=== PATIENT | female | born 1935 | race Caucasian/White ===

== ENCOUNTER 2016-05-02 23:23 | Inpatient (IN) | payer OTHER ==
[2016-05-03 00:11] LABS: BASOPHILS # (AUTO) 0.1 X10^3/uL (0.0-0.1); BASOPHILS % (AUTO) 0.5 % (0.2-1.0); EOSINOPHILS # (AUTO) 0.2 x10^3/uL (0.0-0.2); EOSINOPHILS % (AUTO) 1.8 % (0.9-2.9); HEMATOCRIT 39.2 % (36.0-47.0); HEMOGLOBIN 13.1 g/dL (12.0-16.0); LYMPHOCYTES # (AUTO) 3.1 X10^3/uL (1.3-2.9); LYMPHOCYTES % (AUTO) 25.2 % (21.0-51.0); MEAN CORPUSCULAR HEMOGLOBIN 29.3 pg (27.0-34.0); MEAN CORPUSCULAR HGB CONC 33.3 g/dL (33.0-35.0); MEAN CORPUSCULAR VOLUME 87.8 fL (80.0-100.0); MONOCYTES % (AUTO) 7.9 % (0.0-13.0); NEUTROPHILS % (AUTO) 64.6 % (42.0-75.0); PLATELET COUNT 169 X10^3/uL (150.0-450.0); RED BLOOD COUNT 4.47 X10^6/uL (3.5-5.4); RED CELL DISTRIBUTION WIDTH 14.4 % (11.6-16.5); WHITE BLOOD COUNT 12.3 X10^3/uL (3.6-10.0)
[2016-05-03 00:21] LABS: BLOOD UREA NITROGEN 17 mg/dL (7-18); CALCIUM 8.9 mg/dL (8.5-10.1); CHLORIDE 106 mmol/L (98-107); COR NA(FOR HYPERGLY) 143 mmol/L (136-145); CREATININE 1.17 mg/dL (0.55-1.02); GLUCOSE 131 mg/dL (65-99); SODIUM 142 mmol/L (136-145); TROPONIN I < 0.02 ng/mL (0-1.5); eGFR BLACK RACES 58 (>60); eGFR NON BLACK RACES 48 (>60)
[2016-05-03 00:25] LABS: ALANINE AMINOTRANSFERASE 53 Units/L (12-78); ALBUMIN 3.4 g/dL (3.4-5.0); ALKALINE PHOSPHATASE 73 Units/L (46-116); ASPARTATE AMINO TRANSFERASE 43 Units/L (15-37); CKMB % 1.8 % (<4); CREATINE KINASE 56 Units/L (26-192); CREATINE KINASE MB < 1.0 ng/mL (0-4.0); MAGNESIUM 1.6 mg/dL (1.7-2.9); TOTAL PROTEIN 7.2 g/dL (6.4-8.2)
[2016-05-03 00:26] LABS: D DIMER < 100 ng/mL (0-400)
--- NOTE | 2016-05-03 00:43 | DR.GENAD ---
HPI - PCP Primary Care Physician: cathryn - Complaint/Symptoms Chief Complaint Doctors Comments: Patient presents with complaint of chest heaviness onset at 1500 today and has not gone away. Decided to have it evaluated. "I have A Fib but it not that" just a heaviness. Chief Complaint:: heaviness/tightness in chest - Source History Provided: Patient - Mode of Arrival Mode of Arrival: Ambulatory - Timing Onset of Chief Complaint: 05/02/16 PMH - PMH Past Medical History: Yes Past Medical History: Arthritis, Dyslipidemia Past Medical History Comment: history of a-fib Past Surgical History: Yes Surgical History: Ortho Surgery - Family History History of Family Medical Conditions: Yes Family Medical History: Diabetes Mellitus, Cancer - Social History Does patient currently use any type of tobacco product: No Have you used tobacco products in the last 12 months: No Type of Tobacco Use: None Does any household member use tobacco: No Alcohol Use: None Do you use any recreational Drugs:: No Lives With: Spouse Lives Where: Home - infectious screening In the last 2 months have you had wt loss of >10#?: NO Have you had fever, night sweats or hemotysis?: No Have you traveled outside the country in the last 6 months?: No Isolation: Standard ROS - Review of Systems Constitutional: No Symptoms Reported Eyes: No Symptoms Reported ENTM: No Symptoms Reported Respiratoy: No Symptoms Reported Cardiovascular: No Symptoms Reported Gastrointestinal/Abdominal: No Symptoms Reported Genitourinary: No Symptoms Reported Neurological: No Symptoms Reported Musculoskeletal: No Symptoms Reported Integumentary: No Symptoms Reported Hematologic/Lymphatic: No Symptoms Reported, See HPI Endocrine: No Symptoms Reported Psychiatric: No Symptoms Reported All Other Systems: Reviewed and Negative PE - Vital Signs Vitals: Temperature 98.4 F Pulse Rate 71 Respiratory Rate 16 Blood Pressure [Right Arm] 142/66 Blood Pressure [Left Arm] 117/82 Blood Pressure 151/77 O2 Sat by Pulse Oximetry 95 - General Limitations: No Limitations General Appearance: Alert, In No Apparent Distress - Head Head Exam: Normal Inspection, Atraumatic - Eyes Eye exam: Normal Appearance, PERRL, EOMI - ENT ENT Exam: Normal Exam External Ear Exam: Normal External Inspection TM/Canal Exam: Bilateral Normal Nose Exam: Normal Nose Exam Mouth Exam: Normal Inspection Throat Exam: Normal Inspection - Neck Neck Exam: Normal Inspection - Chest Chest Inspection: Normal Inspection - Cardiovascular Cardiovascular Exam: Regular Rate - Abdominal Exam Abdominal Exam: Normal Inspection, Normal Bowel Sounds Abdominal Tenderness: negative: RUQ, RLQ, LUQ, LLQ, Epigastrium, Suprapubic, Diffuse, Mild, Moderate, Severe, Other - Extremities Extremities Exam: Normal Inspection - Back Back Exam: Normal Inspection, Full ROM - Neurologic Neurological Exam: Alert, Oriented X3, CN II-XII Intact - Psychiatric Psychiatric Exam: Normal Affect - Skin Skin Exam: Warm, Dry, Intact ROR - Labs Reviewed Result Diagrams: 05/02/16 23:55 05/02/16 23:55 Laboratory: WBC 12.3 X10^3/uL (3.6-10.0) H 05/02/16 23:55 RBC 4.47 X10^6/uL (3.5-5.4) 05/02/16 23:55 Hgb 13.1 g/dL (12.0-16.0) 05/02/16 23:55 Hct 39.2 % (36.0-47.0) 05/02/16 23:55 MCV 87.8 fL (80.0-100.0) 05/02/16 23:55 MCH 29.3 pg (27.0-34.0) 05/02/16 23:55 MCHC 33.3 g/dL (33.0-35.0) 05/02/16 23:55 RDW 14.4 % (11.6-16.5) 05/02/16 23:55 Plt Count 169 X10^3/uL (150.0-450.0) 05/02/16 23:55 MPV 9.0 fL (7.4-11.0) 05/02/16 23:55 Neut % 64.6 % (42.0-75.0) 05/02/16 23:55 Lymph % 25.2 % (21.0-51.0) 05/02/16 23:55 [place] % 7.9 % (0.0-13.0) 05/02/16 23:55 Eos % 1.8 % (0.9-2.9) 05/02/16 23:55 Baso % 0.5 % (0.2-1.0) 05/02/16 23:55 Neut # 8.0 x10^3/uL (2.2-4.8) H 05/02/16 23:55 Lymph # 3.1 X10^3/uL (1.3-2.9) H 05/02/16 23:55 [place] # 1.0 x10^3/uL (0.3-0.8) H 05/02/16 23:55 Eos # 0.2 x10^3/uL (0.0-0.2) 05/02/16 23:55 Baso # 0.1 X10^3/uL (0.0-0.1) 05/02/16 23:55 Absolute Nucleated RBC 0.0 /100WBC 05/02/16 23:55 INR Target Range - 05/02/16 23:55 INR 1.32 (0.8-1.3) H 05/02/16 23:55 PTT 38.5 SECONDS (22.9-36.5) H 05/02/16 23:55 PTT Comment - 05/02/16 23:55 D-Dimer < 100 ng/mL (0-400) 05/02/16 23:55 Sodium 142 mmol/L (136-145) 05/02/16 23:55 Corrected Sodium 143 mmol/L (136-145) 05/02/16 23:55 Potassium 3.4 mmol/L (3.5-5.1) L 05/02/16 23:55 Chloride 106 mmol/L (98-107) 05/02/16 23:55 Carbon Dioxide 27.0 mmol/L (21-32) 05/02/16 23:55 BUN 17 mg/dL (7-18) 05/02/16 23:55 Creatinine 1.17 mg/dL (0.55-1.02) H 05/02/16 23:55 Est GFR (MDRD) Af Amer 58 (>60) L 05/02/16 23:55 Est GFR (MDRD) Non-Af 48 (>60) L 05/02/16 23:55 Glucose 131 mg/dL (65-99) H 05/02/16 23:55 Calcium 8.9 mg/dL (8.5-10.1) 05/02/16 23:55 Corrected Calcium TNP 05/02/16 23:55 Magnesium 1.6 mg/dL (1.7-2.9) L 05/02/16 23:55 Total Bilirubin 0.40 mg/dL (0.2-1.0) 05/02/16 23:55 AST 43 Units/L (15-37) H 05/02/16 23:55 ALT 53 Units/L (12-78) 05/02/16 23:55 Alkaline Phosphatase 73 Units/L (46-116) 05/02/16 23:55 Creatine Kinase 56 Units/L (26-192) 05/02/16 23:55 CK-MB (CK-2) < 1.0 ng/mL (0-4.0) 05/02/16 23:55 CK/CKMB % Calc 1.8 % (<4) 05/02/16 23:55 Troponin I < 0.02 ng/mL (0-1.5) 05/02/16 23:55 Total Protein 7.2 g/dL (6.4-8.2) 05/02/16 23:55 Albumin 3.4 g/dL (3.4-5.0) 05/02/16 23:55 Globulin 3.8 g/dL (2.5-4.5) 05/02/16 23:55 Albumin/Globulin Ratio 0.9 Ratio (1.1-2.1) L 05/02/16 23:55 - Diagnosis Discharge Problem: Chest pressure - Discharge Plan Condition: Stable - Follow ups/Referrals Follow ups/Referrals: Bhanu Coughlin [Primary Care Provider] - 3 days - Instructions
[2016-05-03] MEDS ORDERED: ZOFRAN INJ 4 MG VIAL IVP PRN ×2 (01:05→02:15)
--- NOTE | 2016-05-03 01:17 | RAD ---
AP Chest Indication: Chest pain and tightness Comparison: 05/10/2015 Findings: The trachea is midline. The cardiac silhouette is enlarged, unchanged. There is no change in elevat ion of the left hemidiaphragm with a gas-filled loop of splenic flexure beneath the left hemidiaphr agm . There is atelectasis/scarring within the left lung base. No dense airspace consolidation or pl eural effusion identified . No pneumothorax.Chronic displaced fracture deformity of the mid right cl avicle. IMPRESSION: 1. No acute cardiopulmonary abnormality or change from prior examination.. Reported By:
[2016-05-03] MEDS ORDERED: CARDIZEM INJ 125 MG VIAL 125 MG in NS 100 ML IV 100 ML IV PRN (02:04)
[2016-05-03] MEDS ORDERED: CARDIZEM INJ 125 MG VIAL ONE (02:14)
[2016-05-03] MEDS ORDERED: NS 100 ML IV 100 ML IV ONE (02:14)
[2016-05-03] MEDS: CARDIZEM INJ 125 MG VIAL 125 MG in NS 100 ML IV 100 ML IV PRN ×2 (02:26→09:18)
[2016-05-03] MEDS ORDERED: CARDIZEM INJ 50 MG VIAL IVP ONE (02:40)
[2016-05-03 02:46] VITALS: BMI 28.1
[2016-05-03 02:48] LABS: BILIRUBIN,URINE NEGATIVE (NEGATIVE); BLOOD/HEMOGLOBIN,URINE 1+ (NEGATIVE); GLUCOSE, URINE NEGATIVE (NEGATIVE); KETONES,URINE NEGATIVE (NEGATIVE); LEUKOCYTE ESTERASE ,URINE NEGATIVE (NEGATIVE); NITRITES,URINE NEGATIVE (NEGATIVE); PROTEIN,URINE NEGATIVE (NEGATIVE); UROBILINOGEN,URINE NORMAL (NORMAL)
[2016-05-03 02:53] LABS: APPEARANCE,URINE CLEAR (CLEAR); BACTERIA,URINE NEGATIVE /HPF (NEGATIVE); COLOR,URINE YELLOW (YELLOW); RBC,URINE 0-2 /HPF (NEGATIVE); SQUAMOUS EPITHELIAL CELL,UR RARE /HPF (NEGATIVE)
[2016-05-03] MEDS: TYLENOL 325 MG TAB PO PRN ×2 (04:20→10:37)
[2016-05-03 06:32] LABS: BASOPHILS % (AUTO) 0.4 % (0.2-1.0); EOSINOPHILS # (AUTO) 0.1 x10^3/uL (0.0-0.2); EOSINOPHILS % (AUTO) 0.9 % (0.9-2.9); HEMATOCRIT 40.1 % (36.0-47.0); HEMOGLOBIN 13.5 g/dL (12.0-16.0); LYMPHOCYTES % (AUTO) 23.1 % (21.0-51.0); MEAN CORPUSCULAR HEMOGLOBIN 29.4 pg (27.0-34.0); MEAN CORPUSCULAR HGB CONC 33.8 g/dL (33.0-35.0); MEAN CORPUSCULAR VOLUME 87.1 fL (80.0-100.0); MEAN PLATELET VOLUME 9.3 fL (7.4-11.0); MONOCYTES % (AUTO) 7.4 % (0.0-13.0); NEUTROPHILS # (AUTO) 8.8 x10^3/uL (2.2-4.8); NEUTROPHILS % (AUTO) 68.2 % (42.0-75.0); PLATELET COUNT 185 X10^3/uL (150.0-450.0); RED CELL DISTRIBUTION WIDTH 14.3 % (11.6-16.5); WHITE BLOOD COUNT 12.9 X10^3/uL (3.6-10.0)
[2016-05-03 06:33] LABS: CHOL/HDL RATIO 5.5 (0.0-5.0)
[2016-05-03 06:36] LABS: ALANINE AMINOTRANSFERASE 53 Units/L (12-78); ALBUMIN 3.4 g/dL (3.4-5.0); ALKALINE PHOSPHATASE 69 Units/L (46-116); ASPARTATE AMINO TRANSFERASE 41 Units/L (15-37); BLOOD UREA NITROGEN 15 mg/dL (7-18); CALCIUM 8.7 mg/dL (8.5-10.1); CARBON DIOXIDE 25.3 mmol/L (21-32); CHLORIDE 105 mmol/L (98-107); COR NA(FOR HYPERGLY) 143 mmol/L (136-145); CREATININE 1.11 mg/dL (0.55-1.02); GLUCOSE 140 mg/dL (65-99); SODIUM 142 mmol/L (136-145); TOTAL PROTEIN 6.8 g/dL (6.4-8.2); eGFR BLACK RACES > 60 (>60); eGFR NON BLACK RACES 51 (>60)
[2016-05-03 06:46] LABS: CKMB % 1.9 % (<4); CREATINE KINASE 53 Units/L (26-192); CREATINE KINASE MB < 1.0 ng/mL (0-4.0); TROPONIN I 0.02 ng/mL (0-1.5)
[2016-05-03] MEDS ORDERED: MAGNESIUM SULFATE 1 GM/100 mL PREMIX 1 GM/100 ML BAG IV ONE (09:08)
[2016-05-03] MEDS ORDERED: LANOXIN INJ IVP ONE (09:09)
[2016-05-03] MEDS ORDERED: ECOTRIN TAB 325 MG PO ONE (09:25)
[2016-05-03] MEDS: TOPROL XL PO SCH (09:37)
[2016-05-03] MEDS: ELIQUIS PO SCH ×2 (09:38→21:05)
[2016-05-03] MEDS: ECOTRIN TAB 325 MG PO SCH (09:39)
[2016-05-03] MEDS ORDERED: ASPIRIN PO SCH (10:00)
[2016-05-03 12:38] LABS: CKMB % 1.8 % (<4); CREATINE KINASE 55 Units/L (26-192); CREATINE KINASE MB < 1.0 ng/mL (0-4.0); TROPONIN I < 0.02 ng/mL (0-1.5)
[2016-05-03] MEDS: CELEBREX PO SCH (12:54)
[2016-05-03] MEDS: PRILOSEC PO SCH (12:54)
--- NOTE | 2016-05-03 13:46 | DR.H&P ---
H&P - History & Physical for Day of: H&P Date: 05/03/16 - Chief Complaint Chief Complaint: CHEST PRESSURE - Allergies Allergies/Adverse Reactions: Allergies Allergy/AdvReac Type Severity Reaction Status Date / Time No Known Drug Allergy Allergy Verified 10/22/13 13:43 - History of Present Illness History of Present Illness: THIS IS A 80 YEAR OLD FEMALE, WHO IS A PATIENT OF OURS. SHE PRESENTS TO THE EMERGENCY ROOM WITH COMPLAINTS OF CHEST PRESSURE, CHEST HEAVINESS, AND CHEST TIGHTNESS. SHE DENIES PALPITATIONS. PATIENT HAS A HISTORY OF ATRIAL FIBRILLATION, IN WHICH SHE TAKES TOPROL XL AND ELIQUIS AT HOME. PATIENT REPORTS CHEST PAIN STARTED AROUND 3PM YESTERDAY AND HAD IMPROVED. SHE REPORTS PAIN IS MIDSTERNAL AND REPORTS ASSOCIATED DIZZINESS. PATIENT RATES CHEST PAIN A 6 ON A 1-TO-10 PAIN SCALE. LABS, EKG OBTAINED. CBC WNL EXCEPT: WBC 12.3. CMP WNL EXCEPT: POTASSIUM 3.4, CREAT 1.17, GFR 48, GLUCOSE 131, MAGNESIUM 1.6, AST 43. CARDIAC ENZYMES WNL. EKG: SINUS RHYTHM, RATE 69. CHEST XRAY REPORTS NO ACUTE CARDIOPULMONARY ABNORMALITY. PATIENT WAS ADMITTED FOR FURTHER EVALUATION AND TREATMENT OF CHEST PAIN. AFTER ADMISSION TO FLOOR, ATRIAL FIBRILLATION WAS NOTED WITH RATE OF 130'S-140'S. AN EKG WAS OBTAINED: ATRIAL FIB, RATE 137. PATIENT WAS TRANSFERRED TO ICU AND A CARDIZEM DRIP WAS INITIATED. HEART RATE CONTINUES TO BE ELEVATED. WE WILL ADMINISTER A ONE-TIME DOSE OF DIGOXIN IV, START TOPROL XL 50MG, CONITNUE ELIQUIS, AND CONTINUE TO MONITOR ON TELEMETRY. WE WILL WEAN CARDIZEM DRIP TODAY. - Past Medical History Past Medical History: Arthritis, Dyslipidemia, GERD, Hypertension Additional Medical History: Hx Cataracts, Hx Fx Back and Clavicle 20 yrs ago, Rosacea, Atrial Fib - Past Surgical History Surgical History: Ortho Surgery Additional Surgical History: Cataract Removal, Fx Right Wrist Repair - Family History Family Medical History: Diabetes Mellitus, Cancer - Social History Does patient currently use any type of tobacco product: No Have you used tobacco products in the last 12 months: No Type of Tobacco Use: None Does any household member use tobacco: No Alcohol Use: None Drug Use: None - Medications Home Medications: Apixaban [Eliquis] 1 tab PO BID 05/03/16 [History Confirmed 05/03/16] Aspirin [ASPIRIN 325 MG *] 1 tab PO DAILY 05/03/16 [History Confirmed 05/03/16] Digoxin [Digitek] 1 tab PO DAILY 05/03/16 [History Confirmed 05/03/16] Metoprolol Succinate Ext Rel [TOPROL XL 25 MG *] 1 tab PO DAILY 05/03/16 [ History Confirmed 05/03/16] Omeprazole [PRILOSEC 20 MG *] 2 tab PO DAILY 05/03/16 [History Confirmed ] Triamterene & Hydrochlorothiaz [Triamterene/Hydrochloroth 37.5-25 mg] 1 cap PO DAILY 05/03/16 [History Confirmed 05/03/16] - Review of Systems Constitutional: Weakness, Malaise Eyes: No Symptoms Reported. denies: Pain, Vision Change, Conjunctivae Inflammation, Eyelid Inflammation, Redness ENT: No Symptoms Reported. denies: Ear Pain, Ear Discharge, Nose Pain, Nose Discharge, Nose Congestion, Mouth Swelling, Throat Pain, Throat Swelling Respiratory: SOB with Excertion. denies: Cough, Shortness of Breath, Pleuritic Pain, Sputum, Wheezing Cardiovascular: Chest Pain, Light Headedness. denies: Palpitations, Orthopnea, Paroxysmal Noc. Dyspnea, Edema Gastrointestinal: No Symptoms Reported. denies: Nausea, Abdominal Pain, Diarrhea, Constipation, Melena Genitourinary: No Symptoms Reported. denies: Dysuria, Frequency, Incontinence, Hematuria, Retention Musculoskeletal: No Symptoms Reported. denies: Shoulder Pain, Arm Pain, Back Pain, Hand Pain, Leg Pain, Neck Pain Skin: No Symptoms Reported. denies: Rash, Lesions, Jaundice, Bruising, Wound Neurological: No Symptoms Reported. denies: Weakness, Numbness, Incoordination , Change in Speech, Confusion, Seizures - Physical Exam Vital Signs: Temperature 98.6 F Pulse Rate [Apical] 86 Pulse Rate 130 Respiratory Rate 25 Blood Pressure [Left Arm] 122/70 O2 Sat by Pulse Oximetry 93 Oriented: Normal, Time, Person, Place Eyes: Normal. negative: Blurred Vision, Diplopia, Discharge, Pain, Redness Ear: Normal. negative: Swelling, Ecchymosis, Hemotypanum, Abrasion, Laceration Nose: Normal. negative: Injected, Discharge, Blood Throat: Normal. negative: Tonsillar Hypertrophy, Red, Exudate Respiratory: Clear Throughout Cardiovascular: Irregular (Irreg, irreg) : Normal. negative: Dysuria, Hematuria, Frequency, Discharge, Bleeding, Auscultation: Bowel Sounds: Normal. negative: Bruit Palpation: Normal. negative: Spleen Enlarged, Liver Enlarged, Mass Pulsatile Tenderness: Normal. negative: Rebound, Guarding, Rigidity Skin: Normal. negative: Diaphoresis, Wound, Bruising, Ecchymosis Musculoskeletal: Normal Psychiatric: Normal Mood Description: Calm, Appropriate Affect: Normal Speech Pattern: Clear, Appropriate - Assessment/Plan (1) Atrial fibrillation with RVR Status: Acute Plan: WEAN CARDIZEM DRIP TODAY, ADMINISTER ONE-TIME DOSE OF DIGOXIN IV, START TOPROL XL 50MG, CONTINUE ELIQUIS, MONITOR ON TELEMETRY, EKG IN AM. (2) Chest pressure Status: Acute Plan: SERIAL CARDIAC ENZYMES AND EKG'S, MONITOR. (3) Hypertension Qualifiers: Hypertension type: essential hypertension Qualified Code(s): I10 - Essential (primary) hypertension Status: Chronic (4) Hyperlipidemia Qualifiers: Hyperlipidemia type: mixed hyperlipidemia Qualified Code(s): E78.2 - Mixed hyperlipidemia Status: Chronic (5) Rheumatoid arthritis Qualifiers: Rheumatoid arthritis location: multiple sites Rheumatoid factor presence: without rheumatoid factor Laterality: L Qualified Code(s): M06.09 - Rheumatoid arthritis without rheumatoid factor, multiple sites Status: Chronic (6) GERD (gastroesophageal reflux disease) Qualifiers: Esophagitis presence: esophagitis presence not specified Qualified Code(s) : K21.9 - Gastro-esophageal reflux disease without esophagitis Status: Chronic
[2016-05-03] MEDS ORDERED: RESTORIL CAP 15 MG PO PRN (19:37)
[2016-05-03] MEDS ORDERED: [UNRECOGNIZED DRUG - OTHER] PO SCH (21:00)
[2016-05-04 05:43] LABS: BASOPHILS # (AUTO) 0.1 X10^3/uL (0.0-0.1); BASOPHILS % (AUTO) 0.5 % (0.2-1.0); EOSINOPHILS # (AUTO) 0.2 x10^3/uL (0.0-0.2); EOSINOPHILS % (AUTO) 1.4 % (0.9-2.9); HEMATOCRIT 42.4 % (36.0-47.0); HEMOGLOBIN 14.4 g/dL (12.0-16.0); LYMPHOCYTES # (AUTO) 3.5 X10^3/uL (1.3-2.9); LYMPHOCYTES % (AUTO) 23.7 % (21.0-51.0); MEAN CORPUSCULAR HEMOGLOBIN 29.5 pg (27.0-34.0); MEAN CORPUSCULAR HGB CONC 33.8 g/dL (33.0-35.0); MEAN CORPUSCULAR VOLUME 87.3 fL (80.0-100.0); MEAN PLATELET VOLUME 9.6 fL (7.4-11.0); MONOCYTES # (AUTO) 0.9 x10^3/uL (0.3-0.8); MONOCYTES % (AUTO) 6.4 % (0.0-13.0); PLATELET COUNT 199 X10^3/uL (150.0-450.0); RED BLOOD COUNT 4.86 X10^6/uL (3.5-5.4); RED CELL DISTRIBUTION WIDTH 14.5 % (11.6-16.5); WHITE BLOOD COUNT 14.7 X10^3/uL (3.6-10.0)
[2016-05-04 05:50] LABS: ALANINE AMINOTRANSFERASE 47 Units/L (12-78); ALBUMIN 3.2 g/dL (3.4-5.0); ALKALINE PHOSPHATASE 69 Units/L (46-116); ASPARTATE AMINO TRANSFERASE 37 Units/L (15-37); BLOOD UREA NITROGEN 16 mg/dL (7-18); CALCIUM 8.7 mg/dL (8.5-10.1); CARBON DIOXIDE 24.4 mmol/L (21-32); CHLORIDE 104 mmol/L (98-107); COR CA(FOR HYPOALB) 9.3 mg/dL (8.5-10.1); COR NA(FOR HYPERGLY) 142 mmol/L (136-145); CREATININE 1.09 mg/dL (0.55-1.02); DIGOXIN 1.72 ng/mL (0.9-2); GLUCOSE 136 mg/dL (65-99); SODIUM 141 mmol/L (136-145); TOTAL PROTEIN 7.4 g/dL (6.4-8.2); eGFR BLACK RACES > 60 (>60); eGFR NON BLACK RACES 52 (>60)
[2016-05-04] MEDS: CELEBREX PO SCH (08:30)
[2016-05-04] MEDS: PRILOSEC PO SCH (08:30)
[2016-05-04] MEDS: ECOTRIN TAB 325 MG PO SCH (08:30)
[2016-05-04] MEDS: ELIQUIS PO SCH (08:30)
[2016-05-04] MEDS: TOPROL XL PO SCH (08:30)
[2016-05-04] MEDS ORDERED: MAXZIDE 37.5/25 MG PO SCH (10:00)
[2016-05-04] MEDS ORDERED: LANOXIN PO SCH (10:00)
[2016-05-04 10:55] VITALS: BP 114/45
[2016-05-04 12:04] LABS: T4 (THYROXINE) 9.4 ug/dL (4.7-13.3); TSH (3RD GENERATION) 2.439 uIU/mL (0.358-3.74)
== END 2016-05-04 11:25 | disposition home or self-care (01) | DRG 310 ==
LOC: ER 23:23 → MED/SURG 05-03 00:58 → UNDOADMOB 05-03 00:58 → ICU 05-03 02:00 → OBSVTOIN 05-03 02:00
PROVIDERS: ADMIT Internal Medicine; ATTEND Internal Medicine
DX: I48.91 Unspecified atrial fibrillation (principal); R07.89 Other chest pain; R06.02 Shortness of breath; R07.2 Precordial pain; E78.2 Mixed hyperlipidemia; M13.89 Other specified arthritis, multiple sites; I10 Essential (primary) hypertension; M06.09 Rheumatoid arthritis without rheumatoid factor, multiple sites; K21.9 Gastro-esophageal reflux disease without esophagitis; R79.1 Abnormal coagulation profile
CPT/HCPCS: 36415; 71010; 80053; 80061; 80162; 81001; 82550; 82553; 83735; 84436; 84443; 84479; 84484; 85025; 85378; 85610; 85730; 93005; 94760; 96365; 99284; A4222; G0378; J1160; J3490

== ENCOUNTER 2016-12-23 10:32 | Day surgery (SDC) | payer OTHER ==
[~2016-12-23 10:32] MED LIST: D5 LR 1000 ML 1,000 ML IV ONE
[2016-12-23] MEDS ORDERED: DIPRIVAN VIAL 20 ML ONE (12:11)
[2016-12-23 12:58] VITALS: BP 119/70
== END 2016-12-23 12:59 | disposition home or self-care (01) ==
LOC: SURG1 10:32
PROVIDERS: ATTEND Internal Medicine Gastroenterology
PROC: 0DJD8ZZ Inspection of Lower Intestinal Tract, Via Natural or Artificial Opening Endoscopic (ICD-10-PCS; principal; 2016-12-23 15:30)
PROC: 0DBL8ZX Excision of Transverse Colon, Via Natural or Artificial Opening Endoscopic, Diagnostic (ICD-10-PCS; principal; 2016-12-23 15:30)
DX: K63.5 Polyp of colon (principal); K64.0 First degree hemorrhoids; K57.30 Diverticulosis of large intestine without perforation or abscess without bleeding; Z86.010 Personal history of colon polyps; Z80.0 Family history of malignant neoplasm of digestive organs; D12.3 Benign neoplasm of transverse colon
CPT/HCPCS: A4217; J3490; J7120

== ENCOUNTER → 2017-01-18 | Outpatient (CLI) | payer OTHER ==
--- NOTE | 2017-01-19 16:55 | MG ---
Examination: Bilateral screening mammogram. Clinical history: Routine screening. Technique: Digital CC and MLO views of both breasts were obtained. Computer aided detection analysis was performed and used during the interpretation. Comparison: 09/29/2015. Findings: The breasts are composed of scattered fibroglandular densities. Benign-appearing calcifications and v ascular calcifications are noted in the breasts bilaterally. There is an interval generalized increase in the amount of calcifications seen in the medial aspect o f the left breast. Additional imaging evaluation is recommended, with spot magnification views in the CC and lateral projections and a lateral view of the left breast. No suspicious mass, area of architectural distortion or suspicious cluster of microcalcifications is noted in the right breast. Impression: 1. Interval generalized increase in the amount of calcifications in the left breast, as described abo ve. BI-RADS category 0 (ZERO) - ASSESSMENT INCOMPLETE; ADDITIONAL IMAGING IS NEEDED. Recommend immediate recall for additional imaging evaluation, as described above. Diagnostic CAD was utilized and reviewed. * 0 (ZERO) - ASSESSMENT INCOMPLETE; ADDITIONAL IMAGING IS NEEDED. * 0C - ASSESSMENT INCOMPLETE, NEEDS ADDITIONAL IMAGING EVALUATION AND/OR PRIOR MAMMOGRAMS FOR COMPARI SON. * 1/1 (ONE) - NEGATIVE. * 2/II (TWO) - BENIGN FINDINGS. * 3/III (THREE) - PROBABLY BENIGN FINDING; SHORT INTERVAL FOLLOW-UP SUGGESTED. * 4/IV (FOUR) - SUSPICIOUS ABNORMALITY; BIOPSY SHOULD BE CONSIDERED. * 5/V - HIGHLY SUSPICIOUS OF MALIGNANCY; BIOPSY SHOULD BE PERFORMED. * 6/IV - KNOWN BIOPSY PROVEN MALIGNANCY-APPROPRIATE ACTION SHOULD BE TAKEN. A NEGATIVE X-RAY REPORT SHOULD NOT DELAY BIOPSY IF A DOMINANT OR CLINICALLY SUSPICIOUS MASS IS PRESENT; 4 TO 8 PERCENT OF CANCERS ARE NOT IDENTIFIED BY X-RAY. A NEGATIVE REPORT MAY REINFORCE THE CLINICAL IMPRESSION. ADENOSIS AND DENSE BREASTS MAY OBSCURE AN UNDERLYING NEOPLASM. Reported By:
== END ==
LOC: RAD 08:32
PROVIDERS: ATTEND Specialist
DX: Z12.31 Encounter for screening mammogram for malignant neoplasm of breast (principal); R92.8 Other abnormal and inconclusive findings on diagnostic imaging of breast
CPT/HCPCS: 77067

== ENCOUNTER → 2017-02-08 | Outpatient (CLI) | payer OTHER ==
--- NOTE | 2017-02-08 12:59 | MG ---
HISTORY: Abnormal left breast mammogram, Comparison: 01/18/2017 FINDINGS: Spot compression views of the left breast in the CC and MLO projections as well as lateral view of th e left breast were obtained. There are scattered calcifications noted inferior/medial left breast. Se veral of these calcifications are dystrophic in appearance. The remainder appear round or oval shaped , some with lucent centers. Oil cysts are also noted compatible with fat necrosis. No definite suspic ious clusters of pleomorphic calcifications are seen. IMPRESSION: NO RADIOGRAPHIC EVIDENCE OF MALIGNANCY. ACR CATEGORY 2: Benign findings. FOLLOW-UP EXAM 1 YEAR. Diagnostic CAD was utilized and reviewed. * 0 (ZERO) - ASSESSMENT INCOMPLETE; ADDITIONAL IMAGING IS NEEDED. * 1/ (ONE) - NEGATIVE. * 2/II (TWO) - BENIGN FINDINGS. * 3/III (THREE) - PROBABLY BENIGN FINDING; SHORT INTERVAL FOLLOW-UP SUGGESTED. * 4/IV (FOUR) - SUSPICIOUS ABNORMALITY; BIOPSY SHOULD BE CONSIDERED. * 5/V - HIGHLY SUSPICIOUS OF MALIGNANCY; BIOPSY SHOULD BE PERFORMED. A NEGATIVE X-RAY REPORT SHOULD NOT DELAY BIOPSY IF A DOMINANT OR CLINICALLY SUSPICIOUS MASS IS PRESENT; 4 TO 8 PERCENT OF CANCERS ARE NOT IDENTIFIED BY X-RAY. A NEGA TIVE REPORT MAY REINFORCE THE CLINICAL IMPRESSION. ADENOSIS AND DENSE BREASTS MAY OBSCURE AN UNDERLY ING NEOPLASM. Reported By:
== END ==
LOC: RAD 12:00
PROVIDERS: ATTEND Specialist
DX: R92.8 Other abnormal and inconclusive findings on diagnostic imaging of breast (principal)
CPT/HCPCS: 77065